=== PATIENT | female | born 1940 | race Caucasian/White ===

== ENCOUNTER 2019-12-08 07:37 | Observation (INO) ==
[2019-12-08 08:17] LABS: BASO# 0.04 X1000 (0.0-0.2); BASO% 0.4 % (0.0-0.8); EOS# 0.42 X1000 (0.0-0.7); EOS% 4.3 % (0.0-10.0); HEMATOCRIT 42.9 % (37.0-47.0); HEMOGLOBIN 13.3 g/dL (12.0-16.0); IMM GRAN# 0.01 X1000 (0.0-0.04); IMM GRAN% 0.1 % (0.0-0.5); LYMPH# 2.63 X1000 (1.2-3.4); MCH 28.5 PG (27-31); MCV 92.1 FL (81-99); MONO# 0.89 X1000 (0.11-0.59); MONO% 9.1 % (1.7-9.3); MPV 9.4 FL (7.4-10.4); NEUT# 5.74 X1000 (1.4-6.5); NEUT% 59.1 % (42.2-75.2); PLT 278 X1000 (130-400); RBC 4.66 XMIL (4.2-5.4); WBC 9.73 X1000 (4.8-10.8)
--- NOTE | 2019-12-08 08:28 | Diag Imaging Result Doc PS360 ---
EXAM: CHEST-PORTABLE 12/08/2019 HISTORY: ams TECHNIQUE: AP portable at 0814 COMMENT: There are platelike opacities present in the left base. There are old rib fractures on the right. Compared to 11/25/2019 there has been no significant change in the appearance the chest. IMPRESSION: Subsegmental atelectasis in the left base. Electronically signed by Rajendra Krause 12/08/2019 8:26 AM
[2019-12-08 08:32] LABS: INR 0.91; PROTIME 12.7 Seconds (11.0-16.0)
[2019-12-08 08:33] LABS: PTT 24.7 Seconds (22.3-41.8)
[2019-12-08 08:38] LABS: CALCIUM 10.7 mg/dL (8.8-10.2); CREATININE 1.2 mg/dL (0.5-0.9); POTASSIUM 3.8 mmol/L (3.5-5.1); TOTAL BILIRUBIN 0.6 mg/dL (0.20-1.00); TOTAL PROTEIN 7.5 g/dL (6.3-8.3)
--- NOTE | 2019-12-08 09:22 | EKG Report ---
Test Performed on : 12/08/2019 08:21:28 AM Test Reason : weakness Blood Pressure : / mmHG Vent. Rate : 062 BPM Atrial Rate : 062 BPM P-R Int : 180 ms QRS Dur : 090 ms QT Int : 450 ms P-R-T Axes : 054 -30 055 degrees QTc Int : 456 ms Normal sinus rhythm. Left axis deviation Minimal voltage criteria for LVH, may be normal variant Abnormal ECG When compared with ECG of 25-NOV-2019 20:33, (Unconfirmed) premature supraventricular complexes. are no longer present Unconfirmed Result
--- NOTE | 2019-12-08 10:13 | PROVIDER DOCUMENTATION ---
HPI-General Adult - General Chief Complaint: Weakness Stated Complaint: WEAKNESS, AMS, FEMALE Time Seen by Provider: 12/08/19 07:51 Source: patient Allergies/Adverse Reactions: Patient Allergies Allergy/AdvReac Type Severity Reaction Status Date / Time aspirin AdvReac Intermediate NAUSEA/VOMI Verified 03/13/18 18:08 TING Home Medications: Home Medication List Medication Instructions Recorded Confirmed Last Taken Type Naproxen 500 mg PO BID PRN PRN #30 tab 11/25/19 Unknown Rx - History of Present Illness -Gen Adult Nature of Presenting Problems: pt here with increased weakness and feeling "sicker everyday". pt denies pain and reports she feels much worse today. pt reports increased shaking in her arms and legs Location of Pain/Injury: reports: none Pain Radiation: reports: no radiation Quality of Pain: reports: none Onset/Duration: reports: gradual Timing: reports: still present Modifying Factors: improves with: nothing Associated Symptoms: reports: anxiety, weakness, other (tremors) Similar Symptoms Previously?: Yes Review of Systems - Adult - REVIEW OF SYSTEMS - ADULT Constitutional: reports: michael. denies: fever Eyes: reports: no symptoms reported Ears, Nose, Mouth & Throat: reports: no symptoms reported Cardiovascular: reports: no symptoms reported Respiratory: reports: no symptoms reported Gastrointestinal: reports: no symptoms reported Genitourinary: reports: no symptoms reported Musculoskeletal: reports: no symptoms reported Integumentary: reports: no symptoms reported Neurological: reports: tremors Psychiatric: reports: see HPI, anxiety Endocrine: reports: no symptoms reported Hematologic/Lymphatic: reports: no symptoms reported Allergic/Immunologic: reports: no symptoms reported Past History - Adult - PAST MEDICAL HISTORY-ADULT Review of Records: reports: Nursing Assessment Review Major Childhood Illnesses: reports: denies history Cardiovascular: reports: denies history Respiratory: reports: denies history Gastrointestinal: reports: denies history Obstetrical/Gynecological: reports: denies history Genitourinary: reports: denies history Musculoskeletal: reports: fibromyalgia Neurological: reports: denies history Psychiatric: reports: anxiety, depression, psychiatric problems Endocrine/Immune: reports: denies history Other Conditions: reports: denies history - PRIOR SURGERIES/PROCEDURES Surgical/Procedure History: reports: appendectomy, hysterectomy, other (bladder tack) - IMMUNIZATION STATUS Childhood Immunizations: See Nurse Assessment Flu Vaccine: See Nurse Assessment - FAMILY HISTORY Family History: reviewed, not pertinent Physical Exam-General - PHYSICAL EXAM-ADULT Initial Vital Signs Reviewed: Yes - CONSTITUTIONAL General Appearance: alert, no apparent distress - EYES Eyes: PERRL/EOMI, pink conjunctivae - HEAD, EARS, NOSE, MOUTH & THROAT HENMT: normocephalic/atraumatic, normal ENT inspection - NECK Neck: non-tender, supple - RESPIRATORY Respiratory: chest non-tender, lungs clear, normal breath sounds - CARDIOVASCULAR Cardiovascular: normal peripheral pulses, regular rate, rhythm - GASTROINTESTINAL (ABDOMEN) Abdominal Exam: non tender, soft - LYMPHATIC Lymphatic: no adenopathy - MUSCULOSKELETAL Back Exam: normal inspection, no CVA tenderness, no vertebral tenderness Extremity: non-tender - SKIN Integumentary: warm/dry - NEUROLOGIC Neurologic: no motor/sensory deficits, other (tremors) - PSYCHIATRIC Psych/Mental Status: normal mood/affect Progress - PLAN OF CARE/RESULTS Progress/Plan/Lab Results: Vital Signs - 8 hr 12/08/19 07:42 Temperature 98.1 F Pulse Rate 68 Respiratory Rate 18 Blood Pressure 157/71 O2 Sat by Pulse Oximetry 96 Laboratory Results - last 24 hr 12/08/19 12/08/19 12/08/19 07:58 07:58 07:58 WBC RBC Hgb Hct MCV MCH MCHC RDW Std Deviation Plt Count MPV Immature Gran % (Auto) Neut % (Auto) Lymph % (Auto) [place] % (Auto) Eos % (Auto) Baso % (Auto) Immature Gran # (Auto) Neut # (Auto) Lymph # (Auto) [place] # (Auto) Eos # (Auto) Baso # (Auto) PT INR PTT (Actin FS) Sodium 135 L Potassium 3.8 Chloride 99 Carbon Dioxide 23 L Anion Gap 13 BUN 25 H Creatinine 1.2 H Estimated GFR/1.73 m2 43 BUN/Creatinine Ratio 21 Glucose 102 Calculated Osmolality 275 Calcium 10.7 H Total Bilirubin 0.60 AST 13 ALT 8 L Alkaline Phosphatase 76 Creatine Kinase 29 Troponin T High Sens 12 Total Protein 7.5 Albumin 4.0 Globulin 4.0 Albumin/Globulin Ratio 1.0 [place] Plasma/Serum Ethyl Alc 12/08/19 12/08/19 12/08/19 07:58 07:58 07:58 WBC 9.73 RBC 4.66 Hgb 13.3 Hct 42.9 MCV 92.1 MCH 28.5 MCHC 31.0 L RDW Std Deviation 14.0 Plt Count 278 MPV 9.4 Immature Gran % (Auto) 0.1 Neut % (Auto) 59.1 Lymph % (Auto) 27.0 [place] % (Auto) 9.1 Eos % (Auto) 4.3 Baso % (Auto) 0.4 Immature Gran # (Auto) 0.01 Neut # (Auto) 5.74 Lymph # (Auto) 2.63 [place] # (Auto) 0.89 H Eos # (Auto) 0.42 Baso # (Auto) 0.04 PT 12.7 INR 0.91 PTT (Actin FS) 24.7 Sodium Potassium Chloride Carbon Dioxide Anion Gap BUN Creatinine Estimated GFR/1.73 m2 BUN/Creatinine Ratio Glucose Calculated Osmolality Calcium Total Bilirubin AST ALT Alkaline Phosphatase Creatine Kinase Troponin T High Sens Total Protein Albumin Globulin Albumin/Globulin Ratio [place] 1.98 H* Plasma/Serum Ethyl Alc Orders Category Date Time Status Cardiac Monitoring DIRECTED Care 12/08/19 07:47 Active Finger Stick Blood Sugar (ED) DIRECTED Care 12/08/19 07:47 Active Oxygen Therapy- ED Nursing DIRECTED Care 12/08/19 07:47 Active Saline Loc NOW Care 12/08/19 07:47 Active CHEST-PORTABLE [RAD] Stat Exams 12/08/19 07:47 Completed ALCOHOL BLOOD Stat Lab 12/08/19 07:58 Completed CBC WITH ELECTRONIC DIFF [HEME] Stat Lab 12/08/19 07:58 Completed CK PROFILE [SP CHEM] Stat Lab 12/08/19 07:58 Completed COMPREHENSIVE METABOLIC PANEL [CHEM] Stat Lab 12/08/19 07:58 Completed LITHIUM [TDM] Stat Lab 12/08/19 07:58 Completed PROTIME WITH INR [COAG] Stat Lab 12/08/19 07:58 Completed PTT [COAG] Stat Lab 12/08/19 07:58 Completed TROPONIN T HIGH SENSITIVITY Stat Lab 12/08/19 07:58 Completed UA NIMS W/REFLEX CULT [URINALYSIS] Stat Lab 12/08/19 07:47 Uncollected URINE DRUG SCREEN PL Stat Lab 12/08/19 07:52 Uncollected Altered Mental Status Stat Oth 12/08/19 07:46 Ordered EKG [EKG] Stat Ther 12/08/19 07:47 Draft Result Diagrams: 12/08/19 07:58 12/08/19 07:58 - CONSULTS/PCP/HOSPITALIST Notification #1 *Consult/PCP/Hospitalist*: Dr Camp Time Discussed: 10:11 Consult Disposition: Admit Departure - Departure Date of Disposition Decision: 12/08/19 Time of Disposition Decision: 10:12 DIAGNOSIS: [place] toxicity Qualifiers: Encounter type: initial encounter Injury intent: accidental or unintentional Qualified Code(s): T56.891A - Toxic effect of other metals, accidental (unintentional), initial encounter Disposition: ADMITTED INPATIENT 09 Certified Medical Emergency: Emergent Condition: Good Referrals and Follow-Ups: Kay Gill MD [Primary Care Provider] - - Critical Care Note This patient required my direct & personal management of CC.: No Attestation - Physician/ DAVID Attestation Patient care was provided by Advanced Practice Provider:: No The physician spent face to face time with patient:: Yes Advanced Practice Provider documentation review:: Supervising physician onsite and consulted in the evaluation and care of this patient. The physician did have a face to face encounter with the patient.
[2019-12-08] MEDS ORDERED: ZOFRAN IV PRN (11:33)
[2019-12-08] MEDS ORDERED: TYLENOL PO PRN (11:33)
--- NOTE | 2019-12-08 11:44 | HISTORY AND PHYSICAL ---
PRIMARY CARE PHYSICIAN: Dr. Gill. CHIEF COMPLAINT: Shaking in both hands and feet for several weeks that has progressively worsened. HISTORY OF PRESENTING ILLNESS: This is a 79-year-old female who presents to [facility] ER with complaints of worsening shaking in her hands and feet that began several weeks ago and has progressively worsened. States that she has been taking her medications as prescribed. She has a history of depression and we need to obtain a current medication list as we do not have that, but her workup showed a lithium level of 1.98. Otherwise, her workup was fairly benign, but we will admit her for further evaluation and treatment. PAST MEDICAL HISTORY: Frequent UTIs, depression, fibromyalgia. PAST SURGICAL HISTORY: An appendectomy, cholecystectomy, hysterectomy, hernia repair, and a bladder tack. FAMILY HISTORY: Reviewed and noncontributory. SOCIAL HISTORY: She lives alone. Denies any tobacco, alcohol or illicit drug use. ALLERGIES: Aspirin. HOME MEDICATIONS: A current list will need to be obtained, reconciled, reviewed and restarted as appropriate. Will place an order for nursing to update and confirm home medications. LABORATORY DATA: Showed a white blood cell count of 9.73, hemoglobin 13.3, hematocrit 42.9, platelets 278,000. PT and INR of 12.7 and 0.91. Sodium 135, potassium 3.8, chloride 99, CO2 of 23, BUN of 25, creatinine 1.2. Troponin T high-sensitivity of 12. [place] level of 1.98. Serum alcohol level showed none detected. IMAGING: Chest x-ray showed subsegmental atelectasis in the left base. EKG normal sinus rhythm at 62. REVIEW OF SYSTEMS: She denied any fever, chills, blurred vision, dizziness. She does state that she has been having shaking in bilateral hands and feet that has worsened over the past several weeks. Denied any chest pain, coughing, shortness of breath. Denied any abdominal pain, constipation, diarrhea, burning or hurting with urination. PHYSICAL EXAMINATION: VITAL SIGNS: She had a temperature of 98.1 degrees, pulse 68, respirations 18, blood pressure 157/71, saturating 96% on room air. GENERAL: This is a 79-year-old female who is lying in the bed and answers questions appropriately. HEENT: Normocephalic, atraumatic. Normal ENT inspection. Oropharynx and nares are clear. Eyes: Pupils are equal, round, and reactive to light and accommodation. Extraocular movements are intact. NECK: Normal inspection, normal range of motion. LUNGS: Clear to auscultation bilaterally with equal lung expansion and chest wall movement. HEART: Regular rate and rhythm. No murmurs, rubs, or gallops. ABDOMEN: Soft, nontender, nondistended. Bowel sounds are present x4 quadrants. MUSCULOSKELETAL: She had 5/5 strength x4 extremities. NEUROLOGICAL: The cranial nerves 2-12 appear grossly intact. ASSESSMENT: 1. [place] toxicity. 2. Mild acute kidney injury. PLAN: She will be admitted to the medical unit, placed on telemetry, healthy heart diet. She is on normal saline at 75 mL an hour. We will apply SCDs for DVT prophylaxis. Recheck a CBC, BMP and a lithium level in the a.m., and further orders after seen by attending. Dictated by SUKHI Petit for Vernon Rm MD Addendum: Patient seen and examined by myself. Agree with SUKHI note. It reflects my assessment and plan. Patient is being admitted to hospital for lithium toxicity. Will provide IV fluids and check lithium levels tomorrow and will go from there. cc: SUKHI Petit MD Dr. Reddy MTDD
[2019-12-08] MEDS: NS 1,000 ML IV SCH (13:54)
[2019-12-08 19:52] LABS: URINE SOURCE CLEAN CATCH
[2019-12-08 19:54] LABS: BILIRUBIN URINE NEGATIVE (NEGATIVE); BLOOD URINE NEGATIVE (NEGATIVE); COLOR STRAW; GLUCOSE URINE NEGATIVE (NEGATIVE); KETONE URINE NEGATIVE (NEGATIVE); LEUKOCYTES URINE NEGATIVE (NEGATIVE); NITRITE URINE NEGATIVE (NEGATIVE); PH URINE 6.5; PROTEIN URINE NEGATIVE (NEGATIVE); SP GRAVITY URINE 1.009; TURBIDITY URINE CLEAR (CLEAR); UROBILINOGEN URINE NORMAL (NORMAL)
[2019-12-08 19:56] LABS: UR EPITHELIAL CELLS <10 /HPF (<10); URINE BACTERIA NEGATIVE /HPF; URINE RBC <10 /HPF (<10); URINE WBC <10 /HPF (<10)
[2019-12-09] MEDS: NS 1,000 ML IV SCH (03:04)
[2019-12-09 06:08] LABS: BASO# 0.03 X1000 (0.0-0.2); BASO% 0.3 % (0.0-0.8); EOS% 4.1 % (0.0-10.0); HEMATOCRIT 41.2 % (37.0-47.0); HEMOGLOBIN 12.3 g/dL (12.0-16.0); IMM GRAN# 0.01 X1000 (0.0-0.04); IMM GRAN% 0.1 % (0.0-0.5); LYMPH# 1.97 X1000 (1.2-3.4); MCH 27.6 PG (27-31); MCHC 29.9 g/dL (33-37); MCV 92.6 FL (81-99); MONO# 0.89 X1000 (0.11-0.59); MPV 9.3 FL (7.4-10.4); NEUT# 6.54 X1000 (1.4-6.5); NEUT% 66.5 % (42.2-75.2); PLT 265 X1000 (130-400); RBC 4.45 XMIL (4.2-5.4); RDW 13.8 % (11.5-14.5); WBC 9.84 X1000 (4.8-10.8)
[2019-12-09 06:15] LABS: AGAP 9; BUN 16 mg/dL (8-22); CALCIUM 10.1 mg/dL (8.8-10.2); CHLORIDE 106 mmol/L (98-107); COSMO 278; CREATININE 0.9 mg/dL (0.5-0.9); ESTIMATED GFR > 60; GLUCOSE 113 mg/dL (70-104); POTASSIUM 3.6 mmol/L (3.5-5.1); SODIUM 138 mmol/L (136-145); TCO2 23 mmol/L (25-35)
[2019-12-09 10:08] LABS: UR AMPHETAMINES QUAL NONE DETECTED (NONE DETECT); UR BARBITUATES QUAL NONE DETECTED (NONE DETECT); UR BENZODIAZEPIN QUAL NONE DETECTED (NONE DETECT); UR CANNABINOIDS QUAL NONE DETECTED (NONE DETECT); UR COCAINE QUAL NONE DETECTED (NONE DETECT); UR METHADONE QUAL NONE DETECTED (NONE DETECT); UR METHAMPHETAMINE QUAL NONE DETECTED (NONE DETECT); UR OPIATES QUAL NONE DETECTED (NONE DETECT); UR OXYCODONE QUAL NONE DETECTED (NONE DETECT); UR PCP QUAL NONE DETECTED (NONE DETECT); UR PROPOXYPHENE QUAL NONE DETECTED (NONE DETECT); UR TCA QUAL NONE DETECTED (NONE DETECT)
[2019-12-09 12:21] VITALS: BP 139/93
--- NOTE | 2019-12-09 14:44 | DISCHARGE SUMMARY ---
ADMISSION DATE: 12/08/2019 DISCHARGE DATE: 12/09/2019 ADMISSION DIAGNOSES: 1. [place] toxicity. 2. A mild acute kidney injury. DISCHARGE DIAGNOSES: 1. [place] toxicity, resolved. 2. Mild acute kidney injury, resolved. SUMMARY OF FINDINGS: This is a 79-year-old female, who presented to [facility] ER with complaints of worsening shaking to bilateral hands and feet for the past several weeks, but has progressively worsened. States that she had been taking all of her medications as prescribed. Has a history of depression. Her lithium level came back at 1.98. She had a little mild acute kidney injury at 1.2. She was admitted. We gave her hydration. We needed to obtain a current list of her home medications. We rechecked her lithium level this morning, it was down to 1.22. Patient states she is feeling better. So it was felt that she could safely be discharged home. DISCHARGE MEDICATIONS: Will include Aricept 10 mg p.o. at bedtime, Lasix 20 mg p.o. daily, lithium 150 mg p.o. at bedtime, naproxen 500 mg p.o. b.i.d. p.r.n., quetiapine 100 mg p.o. at bedtime and venlafaxine 150 mg p.o. daily. FOLLOW-UP: She will need to follow up with her primary care physician in the next 1 to 2 weeks and call their office for an appointment. She will have Home Health Services also. TIME SPENT: A 35 minute discharge. Dictated by SUKHI Petit for Vernon Rm MD Addendum: Patient seen and examined by myself. Agree with SUKHI note. It reflects my assessment and plan. Patient is being discharged in stable condition . Will be seen by PCP in a week. cc: SUKHI Petit MD Jagan Reddy, MD MTDD
== END 2019-12-09 13:37 | disposition home health service (06) ==
LOC: P.ED 07:37 → P.MEDSURG 07:37
PROVIDERS: ATTEND Internal Medicine